=== PATIENT | male | born 1945 | race African-American/Black ===

== ENCOUNTER 2019-05-12 11:03 | Emergency (ER) | payer OTHER ==
[2019-05-12 11:25] VITALS: TEMP 98; BMI 24.3
--- NOTE | 2019-05-12 12:51 | PDOC ---
History of Present Illness - General Chief Complaint: Urinary Problem Stated Complaint: URINARY PROBLEM Time Seen by Provider: 05/12/19 12:29 History Source: Patient Exam Limitations: No Limitations - History of Present Illness Initial Comments: 05/12/19 12:41 73 yo M with a hx of DM (on metformin and insulin) presents to the emergency department with increased nighttime urinary frequency for the past 3 weeks. Per the patient, he states he does not have burning sensation when he urinates. He urinates multiple times throughout the night and denies a sensation of incomplete voiding. Denies the following: testicular pain, testicular swelling, purulent discharge, and abdominal pain. Denies hematochezia, melena, and diarrhea, but endorses constipation. Denies colonoscopy screening. Denies the following: fevers, chills, SOB, chest pain, nausea, vomiting, and headache. Past History - Past Medical History Allergies/Adverse Reactions: Allergies Allergy/AdvReac Type Severity Reaction Status Date / Time No Known Allergies Allergy Verified 05/12/19 11:25 Home Medications: Ambulatory Orders Insulin Glargine,Hum.rec.anlog [Lantus] 28 unit SQ HS 11/03/17 Aspirin Coated [Ecotrin -] 81 mg PO DAILY tablet.ec 11/07/17 Atorvastatin Ca [Lipitor] 80 mg PO HS tablet 11/07/17 Heparin - 5,000 unit SQ BID vial 11/07/17 Insulin (Levemir) [Levemir Vial] 15 units SQ AM units 11/07/17 Insulin Sliding Scale [Novolog Vial Sliding Scale -] 1 vial SQ ACHS units 11/07 COPD: No Diabetes: Yes - Surgical History Orthopedic Surgery: Yes (shoulder sx) - Psycho Social/Smoking Cessation Hx Smoking History: Never smoked Have you smoked in the past 12 months: No Number of Cigarettes Smoked Daily: 0 Hx Alcohol Use: No Drug/Substance Use Hx: No Substance Use Type: None Hx Substance Use Treatment: No Review of Systems - Review of Systems Able to Perform ROS?: Yes Is the patient limited Citizen [place] proficient: No Constitutional: No: Chills, Diaphoresis, Fever, Weakness HEENTM: No: Eye Pain, Ear Pain, Nose Pain, Throat Pain, Mouth Pain Respiratory: No: Cough, Shortness of Breath, SOB with Exertion Cardiac (ROS): No: Chest Pain, Lightheadedness, Syncope, Chest Tightness ABD/GI: No: Constipated, Diarrhea, Nausea, Rectal Bleeding, Vomiting, Tarry Stools : Yes: Frequency. No: Burning, Dysuria, Discharge, Flank Pain, Hematuria, Urgency, Testicular Mass, Testicular Swelling, Testicular Pain Musculoskeletal: No: Back Pain, Joint Pain, Neck Pain Integumentary: No: Bruising, Erythema, Rash Neurological: No: Headache, Numbness, Tingling, Tremors Psychiatric: No: Change in Appetite Endocrine: No: Unexplained Weight Gain Hematologic/Lymphatic: No: Anemia *Physical Exam - Vital Signs Last Vital Signs Temp Pulse Resp BP Pulse Ox 98 F 90 18 169/90 99 05/12/19 11:22 05/12/19 11:22 05/12/19 11:22 05/12/19 11:22 05/12/19 11:22 - Physical Exam General Appearance: Yes: Nourished, Appropriately Dressed. No: Apparent Distress HEENT: positive: EOMI, BULL, Normal Voice, Symmetrical, Pharynx Normal, Hearing Grossly Normal. negative: Pale Conjunctivae, Scleral Icterus (R), Scleral Icterus (L), Muffled/Hoarse voice, Pharyngeal Erythema, Tonsillar Exudate, Tonsillar Erythema, Nasal Congestion, Rhinorrhea, Excessive drooling Neck: positive: Trachea midline, Supple. negative: Tender, Lymphadenopathy (R) , Lymphadenopathy (L), Tender lateral, Tender midline Respiratory/Chest: positive: Lungs Clear, Normal Breath Sounds. negative: Chest Tender, Respiratory Distress, Accessory Muscle Use, Rhonchi, Stridor, Wheezing, Hyperresonant Cardiovascular: positive: Regular Rhythm, Regular Rate, S1, S2. negative: Systolic Murmur Gastrointestinal/Abdominal: positive: Normal Bowel Sounds, Flat, Soft. negative : Tender, Distended, Guarding, Rebound Lymphatic: negative: Adenopathy Musculoskeletal: positive: Normal Inspection. negative: CVA Tenderness, Vertebral Tenderness Extremity: positive: Normal Capillary Refill, Normal Inspection, Normal Range of Motion. negative: Tender, Swelling, Calf Tenderness Integumentary: positive: Normal Color, Dry, Warm. negative: Clammy, Diaphoresis Neurologic: positive: Fully Oriented, Alert, Normal Mood/Affect ED Treatment Course - LABORATORY CBC & Chemistry Diagram: 05/12/19 13:00 05/12/19 13:00 Medical Decision Making - Medical Decision Making 05/12/19 12:56 73 yo M with a hx of DM (on metformin and insulin) presents to the emergency department with increased nighttime urinary frequency for the past 3 weeks. Initial vitals: Initial Vital Signs Temp Pulse Resp BP Pulse Ox 98 F 90 18 169/90 99 05/12/19 11:22 05/12/19 11:22 05/12/19 11:22 05/12/19 11:22 05/12/19 11:22 Work up: Laboratory Tests 05/12/19 05/12/19 05/12/19 13:00 13:00 13:00 WBC 6.6 RBC 4.75 Hgb 14.7 Hct 42.7 MCV 89.9 MCH 30.9 MCHC 34.4 RDW 13.2 Plt Count 141 D MPV 10.2 Absolute Neuts (auto) 3.1 Neutrophils % 46.4 D Lymphocytes % 44.5 H D Monocytes % 7.1 Eosinophils % 1.2 Basophils % 0.8 Nucleated RBC % 0 Sodium 136 Potassium 4.2 Chloride 102 Carbon Dioxide 30 Anion Gap 4 L BUN 20.7 H Creatinine 1.2 Est GFR (CKD-EPI)AfAm 70.09 Est GFR (CKD-EPI)NonAf 60.47 Random Glucose 388 H Calcium 9.5 Total Bilirubin 0.8 AST 11 L ALT 20 Alkaline Phosphatase 114 Total Protein 8.0 Albumin 4.0 Urine Color Yellow Urine Appearance Clear Urine pH 6.0 Ur Specific [place] 1.040 H Urine Protein Negative Urine Glucose (UA) 3+ H Urine Ketones Negative Urine Blood Negative Urine Nitrite Negative Urine Bilirubin Negative Urine Urobilinogen 0.2 Ur Leukocyte Esterase Negative 05/12/19 14:00 I spoke to the patient regarding his results. I explained to the patient that his dribbling sensation can be secondary to an enlarged prostate. I relayed to the patient that this possibly can be prostate cancer and urged the patient to follow up with his primary medical doctor within 1 week and to follow up with the urologist within 1 week for prostate work up. The US conducted by me shows that there is an enlarged prostate with irregularity. no bacterial infection or CADY noted. the patient understood the instructions and agreed to follow up. Discharge - Discharge Information Problems reviewed: Yes Clinical Impression/Diagnosis: Urinary frequency Disposition: HOME - Admission No - Follow up/Referral Referrals: Sumit Mancera MD [Staff Physician] - - Patient Discharge Instructions Patient Printed Discharge Instructions: Prostate Specific Antigen, Benign Prostatic Hyperplasia Additional Instructions: You were seen in our emergency department for the evaluation of your urinary symptoms. Please follow up with the urologist that has been referred to you ( Dr. Mancera) within 3 days after discharge for follow up care and management. It is VERY IMPORTANT that you follow up with him to evaluate your prostate. I suspect your prostate is enlarged and needs to be worked up. Please return to the emergency department if you have worsening symptoms or new concerning symptoms such as inability to urinate, pain with urination, blood in your urine , flank pain, and fevers and/or uncontrollable nausea/vomiting. - Post Discharge Activity Work/Back to School Note: Back to Work
[2019-05-12 13:08] LABS: BASO % 0.8 % (0-2.0); EOS % 1.2 % (0-4.5); HEMATOCRIT 42.7 % (35.4-49); HEMOGLOBIN 14.7 GM/dL (11.7-16.9); LYMPH % 44.5 % (8-40); MCH 30.9 pg (25.7-33.7); MCHC 34.4 g/dl (32.0-35.9); MEAN CELL VOLUME 89.9 fl (80-96); MEAN PLT VOLUME 10.2 fl (7.5-11.1); MONO % 7.1 % (3.8-10.2); NEUT % 46.4 % (42.8-82.8); PLATELET COUNT 141 K/MM3 (134-434); RBC 4.75 M/mm3 (4.00-5.60); RDW 13.2 % (11.9-15.9); WHITE BLOOD COUNT 6.6 K/mm3 (4.0-10.0)
[2019-05-12 13:38] LABS: BILIRUBIN,TOTAL 0.8 mg/dL (0.2-1); BLOOD UREA NITROGEN 20.7 mg/dL (7-18); CALCIUM 9.5 mg/dL (8.5-10.1); CREATININE 1.2 mg/dL (0.55-1.3); POTASSIUM 4.2 mmol/L (3.5-5.1)
[2019-05-12 13:57] LABS: URINE APPEARANCE CLEAR; URINE BILIRUBIN NEGATIVE (NEGATIVE); URINE COLOR YELLOW; URINE GLUCOSE (UA) 3+ (NEGATIVE); URINE KETONE NEGATIVE (NEGATIVE); URINE LEUK ESTERASE NEGATIVE (NEGATIVE); URINE NITRITE NEGATIVE (NEGATIVE); URINE PROTEIN NEGATIVE (NEGATIVE); URINE UROBILINOGEN 0.2 mg/dL (0.2-1.0)
[2019-05-12 15:54] VITALS: BP 167/87; PULSE 74
--- NOTE | 2019-05-12 17:17 | PDOC ---
Documentation entered by Philippe Riley SCRIBE, acting as scribe for Robinson Cherry MD. Robinson Cherry MD: This documentation has been prepared by the Rosemary raymond Xhesika, SCRIBE, under my direction and personally reviewed by me in its entirety. I confirm that the documentation accurately reflects all work, treatment, procedures, and medical decision making performed by me. Attending Attestation - Resident Resident Name: Chandana Juarez - ED Attending Attestation I have performed the following: I have examined & evaluated the patient, The case was reviewed & discussed with the resident, I agree w/resident's findings & plan, Exceptions are as noted - HPI HPI: 05/12/19 15:49 The patient is a 73 year old male with a past medical history of DM (on metformin and insulin) who presents to the ED with 3 weeks of urinary frequency at night. Pt reports he has been urinating multiple times per night. The patient denies chest pain, shortness of breath, and dizziness. Denies fever , chills, cough, nausea, vomiting, and constipation. Denies dysuria, urgency and hematuria. Allergy: NKDA Social: Denies alcohol, cigarette or drug use. - Physicial Exam PE: 05/12/19 17:17 Vitals: Triage Vital signs reviewed General Appearance: No acute distress, well nourished well developed, Head: Atraumatic, Abdomen: Soft, non distended, normal bowel sounds, non tender to palpation Extremities: Full range of motion to all extremities, no cyanosis, clubbing, or edema Skin: Warm and dry, no rashes or lesions, no rash, no petechiae Psych: Normal mood, normal affect - Medical Decision Making 05/12/19 17:17 History examination consistent with enlarged prostate stressed to patient importance of urology follow-up to rule out more serious etiology such as cancer Findings, need for follow-up and strict return instructions discussed with patient.
== END 2019-05-12 15:52 | disposition home or self-care (01) ==
LOC: JER 11:03
DX: R35.0 Frequency of micturition (principal); E11.9 Type 2 diabetes mellitus without complications; Z79.4 Long term (current) use of insulin
CPT/HCPCS: 36415; 80053; 81003; 85025; 87086; 99282-25

== ENCOUNTER 2020-01-07 17:13 | Emergency (ER) | payer OTHER ==
[2020-01-07] MEDS ORDERED: SODIUM CHLORIDE 1,000 ML IV STA (17:20)
[2020-01-07 17:24] VITALS: BP 167/67; PULSE 73; TEMP 98.2; BMI 24.6
--- NOTE | 2020-01-07 17:24 | PDOC ---
Rapid Medical Evaluation Chief Complaint: Blood Sugar Problem Time Seen by Provider: 01/07/20 17:17 Medical Evaluation: Allergies Allergy/AdvReac Type Severity Reaction Status Date / Time No Known Allergies Allergy Verified 01/07/20 17:21 01/07/20 17:22 I performed a brief in-person evaluation of this patient. Pt is a 74 y/o male sent to the ED by urgent care for a blood glucose of 371 mg/dL. He states he ran out of his insulin 4 days ago. He does not feel unwell. He denies any complaints at this time. Pertinent physical exam findings: speaking in full sentences, nontoxic I have ordered the following: labs, saline lock, fluids Patient to proceed to ED for further evaluation. Discharge Disposition - Diagnosis High blood sugar - Discharge Dispostion Last Admission D/C Date: 11/08/17 - Referrals - Patient Instructions - Post Discharge Activity
[2020-01-07] MEDS ORDERED: INSULIN REGULAR HUMAN 100 UNITS/ML *VIAL SQ ONE (17:46)
[2020-01-07 18:43] LABS: EOS % 3.1 % (0-4.5); HEMATOCRIT 39.1 % (35.4-49); HEMOGLOBIN 12.9 GM/dL (11.7-16.9); LYMPH % 47.1 % (8-40); MCHC 33.1 g/dl (32.0-35.9); MEAN CELL VOLUME 90.5 fl (80-96); MEAN PLT VOLUME 10.8 fl (7.5-11.1); MONO % 7.3 % (3.8-10.2); NEUT % 40.5 % (42.8-82.8); PLATELET COUNT 141 K/MM3 (134-434); RBC 4.32 M/mm3 (4.00-5.60); RDW 13.8 % (11.9-15.9); WHITE BLOOD COUNT 5.3 K/mm3 (4.0-10.0)
[2020-01-07 19:04] LABS: ALBUMIN 3.6 g/dl (3.4-5.0); BILIRUBIN,TOTAL 0.6 mg/dL (0.2-1); BLOOD UREA NITROGEN 17.1 mg/dL (7-18); CALCIUM 8.9 mg/dL (8.5-10.1); CREATININE 1.3 mg/dL (0.55-1.3); POTASSIUM 4.5 mmol/L (3.5-5.1); TOT PROT 7.7 g/dl (6.4-8.2)
--- NOTE | 2020-01-07 21:24 | PDOC ---
History of Present Illness - General Chief Complaint: Blood Sugar Problem Stated Complaint: ELEVATED GLUCOSE LEVEL/SENT BY PCP Time Seen by Provider: 01/07/20 17:17 - History of Present Illness Initial Comments: 01/07/20 21:22 74-year-old male with a past medical history of diabetes comes to the emergency room for high blood sugar reading about 350 at home seen at urgent care he was told to come to the emergency room he has no symptoms. Past History - Medical History Allergies/Adverse Reactions: Allergies Allergy/AdvReac Type Severity Reaction Status Date / Time No Known Allergies Allergy Verified 01/07/20 17:21 Home Medications: Ambulatory Orders Insulin Glargine,Hum.rec.anlog [Lantus] 28 unit SQ HS 11/03/17 Aspirin Coated [Ecotrin -] 81 mg PO DAILY tablet.ec 11/07/17 Atorvastatin Ca [Lipitor] 80 mg PO HS tablet 11/07/17 Heparin - 5,000 unit SQ BID vial 11/07/17 Insulin (Levemir) [Levemir Vial] 15 units SQ AM units 11/07/17 Insulin Sliding Scale [Novolog Vial Sliding Scale -] 1 vial SQ ACHS units COPD: No Diabetes: Yes - Surgical History Orthopedic Surgery: Yes (shoulder sx) - Psycho-Social/Smoking History Smoking History: Never smoked Have you smoked in the past 12 months: No Number of Cigarettes Smoked Daily: 0 - Substance Abuse Hx (Audit-C & DAST Scrn) How often the patient has a drink containing alcohol: Never Score: In Men: 4 or > Positive; In Women: 3 or > Positive: 0 Screen Result (Pos requires Nsg. Audit-10AR): Negative In the last yr the pt used illegal drug/Rx for NonMed reason: No Score: Yes response is considered Positive: 0 Screen Result (Positive result requires Nsg. DAST-10): Negative Review of Systems - Review of Systems Constitutional: No: Fever Respiratory: No: Cough *Physical Exam - Vital Signs Last Vital Signs Temp Pulse Resp BP Pulse Ox 98.2 F 73 16 167/67 100 01/07/20 17:21 01/07/20 17:21 01/07/20 17:21 01/07/20 17:21 01/07/20 17:21 - Physical Exam General Appearance: Yes: Nourished, Appropriately Dressed. No: Apparent Distress HEENT: positive: Symmetrical Neck: positive: Trachea midline, Supple Respiratory/Chest: positive: Normal Breath Sounds. negative: Respiratory Distress Musculoskeletal: positive: Normal Inspection Extremity: positive: Normal Inspection Integumentary: positive: Normal Color, Dry Neurologic: positive: Fully Oriented ED Treatment Course - LABORATORY CBC & Chemistry Diagram: 01/07/20 18:00 01/07/20 18:00 - ADDITIONAL ORDERS Additional order review: Laboratory Results 01/07/20 01/07/20 01/07/20 20:32 18:00 17:32 Sodium 138 Potassium 4.5 Chloride 105 Carbon Dioxide 28 Anion Gap 5 L BUN 17.1 Creatinine 1.3 Est GFR (CKD-EPI)AfAm 63.18 Est GFR (CKD-EPI)NonAf 54.51 POC Glucometer 101 326 Random Glucose 343 H Calcium 8.9 Total Bilirubin 0.6 AST 14 L ALT 17 Alkaline Phosphatase 112 Total Protein 7.7 Albumin 3.6 Beta-Hydroxybutyrate 1.3 01/07/20 01/07/20 01/07/20 20:32 18:00 17:32 RBC 4.32 MCV 90.5 MCHC 33.1 RDW 13.8 MPV 10.8 Neutrophils % 40.5 L Lymphocytes % 47.1 H Monocytes % 7.3 Eosinophils % 3.1 D Basophils % 2.0 POC Glucometer 101 326 - Medications Given in the ED: ED Medications Discontinued Medications Generic Name Dose Route Start Last Admin Trade Name Freq PRN Reason Stop Dose Admin Sodium Chloride 1,000 mls @ 1,000 mls/hr 01/07/20 17:20 01/07/20 18:05 Normal Saline - IV 01/07/20 18:19 1,000 mls/hr .Q1H STA Administration Insulin Human Regular 6 units 01/07/20 17:46 01/07/20 19:41 Novolin R Vial *For Ivpush Or Iv Drip Only* SQ 01/07/20 17:47 6 units ONCE ONE Administration Medical Decision Making - Medical Decision Making 01/07/20 21:23 Asymptomatic now normal blood glucose. Follow-up with primary care physician I have reviewed the pathophysiology with the patient. They are in agreement with the treatment plan all questions were answered to their satisfaction. Understanding for follow-up without fail was also conveyed to the patient. Again they are in agreement. Discharge - Discharge Information Problems reviewed: Yes Clinical Impression/Diagnosis: High blood sugar, Diabetes mellitus Condition: Stable Disposition: HOME - Admission No - Follow up/Referral - Patient Discharge Instructions Patient Printed Discharge Instructions: DI for Hyperglycemia -- Adult Additional Instructions: Return to the emergency room for worsening symptoms and without fail follow-up with your primary care physician in 1 to 2 days for further evaluation and treatment options. Continue your home insulin use as directed. Continue your regular medications as directed. - Post Discharge Activity
== END 2020-01-07 22:05 | disposition home or self-care (01) ==
LOC: JER 17:13
PROC: 3E0337Z Introduction of Electrolytic and Water Balance Substance into Peripheral Vein, Percutaneous Approach (ICD-10-PCS; principal; 2020-01-07)
DX: R73.9 Hyperglycemia, unspecified (principal)
CPT/HCPCS: 36415; 80053; 82010; 82962; 85025; 99284-25

== ENCOUNTER 2021-07-16 13:47 | Emergency (ER) | payer OTHER ==
[2021-07-16 13:53] VITALS: BP 145/73; PULSE 76; TEMP 97.9; BMI 24.9
== END 2021-07-16 15:48 | disposition home or self-care (01) ==
LOC: JER 13:47
DX: S01.01XA Laceration without foreign body of scalp, initial encounter (principal); W18.2XXA Fall in (into) shower or empty bathtub, initial encounter
CPT/HCPCS: 70450-TC; 99284-25

== ENCOUNTER 2021-08-26 18:20 | Emergency (ER) | payer OTHER ==
[2021-08-26 18:27] VITALS: TEMP 97.9; BMI 26.1
[2021-08-26 20:07] LABS: VENOUS BASE EXCESS -1.1 mmol/L (-2-2); VENOUS O2 SATURATION 84.5 % (70-80); VENOUS PCO2 40.3 mmHg (38-52); VENOUS PH 7.388 (7.310-7.410)
[2021-08-26 20:25] LABS: EOS % 2.2 % (0-4.5); HEMATOCRIT 40.2 % (35.4-49); HEMOGLOBIN 13.8 GM/dL (11.7-16.9); LYMPH % 34.1 % (8-40); MCH 30.7 pg (25.7-33.7); MCHC 34.3 g/dl (32.0-35.9); MEAN CELL VOLUME 89.6 fl (80-96); NEUT % 52.7 % (42.8-82.8); PLATELET COUNT 136 10^3/uL (134-434); RBC 4.48 M/mm3 (4.00-5.60); RDW 13.4 % (11.9-15.9); WHITE BLOOD COUNT 4.6 K/mm3 (4.0-10.0)
[2021-08-26 20:28] LABS: CALCIUM 9.2 mg/dL (8.5-10.1)
[2021-08-26 20:29] LABS: ALBUMIN 3.7 g/dl (3.4-5.0); BLOOD UREA NITROGEN 17.3 mg/dL (7-18); MAGNESIUM 2.1 mg/dL (1.8-2.4)
[2021-08-26 20:31] LABS: CREATININE 1.2 mg/dL (0.55-1.3)
[2021-08-26 20:33] LABS: BILIRUBIN,TOTAL 0.8 mg/dL (0.2-1); TOT PROT 7.3 g/dl (6.4-8.2)
[2021-08-26] MEDS ORDERED: INSULIN REGULAR HUMAN 100 UNITS/ML *VIAL SQ ONE (21:32)
[2021-08-26 22:33] VITALS: BP 158/89; PULSE 84
[2021-08-26 23:14] LABS: PH,URINE 5.5 (5.0-8.0); URINE APPEARANCE CLEAR; URINE BILIRUBIN NEGATIVE (NEGATIVE); URINE COLOR YELLOW; URINE GLUCOSE (UA) 3+ (NEGATIVE); URINE KETONE NEGATIVE (NEGATIVE); URINE LEUK ESTERASE NEGATIVE (NEGATIVE); URINE NITRITE NEGATIVE (NEGATIVE); URINE PROTEIN NEGATIVE (NEGATIVE); URINE UROBILINOGEN 0.2 mg/dL (0.2-1.0)
== END 2021-08-26 22:35 | disposition home or self-care (01) ==
LOC: JER 18:20
PROC: 3E023GC Introduction of Other Therapeutic Substance into Muscle, Percutaneous Approach (ICD-10-PCS; principal; 2021-08-26)
DX: E11.65 Type 2 diabetes mellitus with hyperglycemia (principal)
CPT/HCPCS: 36415; 80053; 81003; 82010; 82803; 82962; 83735; 85025; 87086; 93005; 93010; 96372; 99284-25